=== PATIENT | female | born 2000 | race Caucasian/White ===

== ENCOUNTER → 2021-01-02 | Emergency (ER) | payer BC ==
[~2021-01-02] VITALS: Ht 175.3 cm; Wt 49.9 kg
[~2021-01-02] MED LIST: ABILIFY5 MG; ADDERALL 30 MG30 MG; LAMICTAL100 M1; PROZAC20 MG
== END | disposition left against medical advice (07) ==
LOC: EMR PED 07:46
DX: R10.2 Pelvic and perineal pain (principal); M54.5 Low back pain